=== PATIENT | female | born 1995 | race Caucasian/White ===

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

== ENCOUNTER → 2018-08-26 | Outpatient (CLI) | payer OTHER ==
[~2018-08-26] MED LIST changes: -ACET50TA PO; -COLA100C3 PO; +COLA100C5 PO; +MAPA500T2 PO; -PRENTAB13 PO; +PRENTAB20 PO
[2018-08-26 20:00] LABS: BASO % 0.4 % (0.0-1.0); EOS # 0.4 10^3/uL (0.0-0.50); EOS % 3.2 % (0.0-3.0); HEMATOCRIT 36.5 % (36.0-47.0); MEAN CORPUSCULAR HEMOGLOBIN 29.1 pg (27.0-33.0); MEAN CORPUSCULAR HGB CONC 32.9 g/dl (32.0-36.5); MEAN CORPUSCULAR VOLUME 88.6 fl (80.0-96.0); MONO # 0.5 10^3/uL (0.0-0.8); MONO % 4.9 % (0.0-5.0); NEUTROPHILS # 7.1 10^3/uL (1.8-7.7); PLATELET COUNT, AUTOMATED 282 10^3/uL (150-450); RED BLOOD COUNT 4.12 10^6/uL (4.00-5.40)
[2018-08-26 21:58] LABS: CHLAMYDIA DNA AMPLIFICATION NEGATIVE (NEGATIVE); GC DNA AMPLIFICATION NEGATIVE (NEGATIVE)
[2018-08-28 10:53] LABS: HEPATITIS C VIRUS ABY INDEX 0.1 INDEX (<0.8); HIV 1&2 SCREEN CENTAUR NEGATIVE (NEGATIVE); RUBELLA IgG QUALITATIVE IMMUNE (IMMUNE)
== END ==
LOC: M SMT 13:43
PROVIDERS: ATTEND Obstetrics & Gynecology
DX: Z34.81 Encounter for supervision of other normal pregnancy, first trimester (principal); Z3A.11 11 weeks gestation of pregnancy

== ENCOUNTER → 2018-09-24 | Outpatient (REF) | payer OTHER | LOC: M LAB REF 18:17 | PROVIDERS: ATTEND Obstetrics & Gynecology | DX: Z34.82 Encounter for supervision of other normal pregnancy, second trimester (principal) ==

== ENCOUNTER → 2018-10-07 | Outpatient (CLI) | payer OTHER ==
[2018-10-07 17:04] LABS: HEMOGLOBIN A1c 4.7 %
== END ==
LOC: M LAB 12:17
PROVIDERS: ATTEND Obstetrics & Gynecology
DX: Z36.89 Encounter for other specified antenatal screening (principal)

== ENCOUNTER → 2018-10-12 | Outpatient (CLI) | payer OTHER ==
--- NOTE | 2018-10-13 03:47 | REP ---
Clinical: Anatomical evaluation. Comparison: None . Findings: Examination demonstrates a single live intrauterine in transverse (head to maternal right) presentation. motion is identified by technologist. Placenta is noted anterior and grade grade zero without evidence for placenta previa or abruption. Amniotic fluid volume is normal. Cervix measures 5.6 cm in length and appears closed. No evidence for nuchal cord. Gestational age by LMP 18 weeks 3 days with LEO 03/12/2019 . Gestational age by current measurements 18 weeks 1 day with LEO 13 19 . FHR equals 152 beats per minute. BPD 4.1 cm 18 weeks 3 day HC 15.0 cm 18 weeks 0 days AC 11.8 cm 17 weeks 4 days FL 2.8 cm 18 weeks 4 days HL 2.6 cm 18 weeks 0 days HC/AC ratio 1.27 Estimated weight 221 grams ( 33rd percentile). Anatomical assessment demonstrates normal structures including cranium, choroid plexus, cavum, cerebellum/posterior fossa, facial features, lungs, four-chamber heart/ventricular outflow tracts, diaphragm, stomach, cord insertion/three-vessel cord, kidneys/bladder, spine, and extremities. Impression: Single live intrauterine in transverse lie demonstrating appropriate interval growth. Anatomical assessment is complete and normal. No gross abnormalities are identified. Electronically Signed by James Schmid MD 10/13/2018 03:38 A
== END ==
LOC: M RAD 12:49
PROVIDERS: ATTEND Obstetrics & Gynecology
DX: Z34.81 Encounter for supervision of other normal pregnancy, first trimester (principal); Z3A.18 18 weeks gestation of pregnancy

== ENCOUNTER → 2018-11-25 | Outpatient (REF) | payer OTHER ==
[2018-11-25 20:04] LABS: CHLAMYDIA DNA AMPLIFICATION NEGATIVE (NEGATIVE); GC DNA AMPLIFICATION NEGATIVE (NEGATIVE)
== END ==
LOC: M LAB REF 17:01
PROVIDERS: ATTEND Obstetrics & Gynecology
DX: R10.2 Pelvic and perineal pain (principal)

== ENCOUNTER → 2018-12-14 | Outpatient (CLI) | payer OTHER ==
[2018-12-14 15:22] LABS: HEMATOCRIT 34.8 % (36.0-47.0); HEMOGLOBIN 11.6 g/dl (12.0-15.5); MEAN CORPUSCULAR HEMOGLOBIN 29.4 pg (27.0-33.0); MEAN CORPUSCULAR HGB CONC 33.3 g/dl (32.0-36.5); MEAN CORPUSCULAR VOLUME 88.3 fl (80.0-96.0); PLATELET COUNT, AUTOMATED 212 10^3/uL (150-450); RED BLOOD COUNT 3.94 10^6/uL (4.00-5.40); WHITE BLOOD COUNT 12.1 10^3/uL (4.0-10.0)
== END ==
LOC: M LAB 13:21
PROVIDERS: ATTEND Obstetrics & Gynecology
DX: Z34.82 Encounter for supervision of other normal pregnancy, second trimester (principal); Z3A.00 Weeks of gestation of pregnancy not specified

== ENCOUNTER → 2019-02-24 | Outpatient (REF) | payer OTHER | LOC: M LAB REF 10:51 | PROVIDERS: ATTEND Obstetrics & Gynecology | DX: Z34.83 Encounter for supervision of other normal pregnancy, third trimester (principal) ==

== ENCOUNTER 2019-03-05 14:22 | Inpatient (IN) | payer OTHER, SELFPAY ==
[~2019-03-05] VITALS: Ht 160 cm; Wt 87.0 kg
[2019-03-05] MEDS ORDERED: LACTATED RINGER'S 1000 ML IV STA (14:52)
--- NOTE | 2019-03-05 15:07 | HPEPDOC ---
Obstetrical History & Physical General Date of Admission Mar 05, 2019 at 14:22 History of Present Illness Chief Complaint: Induction of labor Information Provided By: Patient Age: 23 : 3 Term: 2 Pre-term: 0 Abortions: 0 Livin Care Care: Good Care Dating Final EDC: Mar 12, 2019 Final EDC by: LMP, 1st trimester (US) EGA at Admission: 39 Antepartum Course Height (inches): 63 Past Medical History Past Obstetrical History #1: Past Obstetrical History: Primgravida (2015) Type of Delivery: Spontaneous Vaginal Del. Sex of Infant: Female (6 lbs. 12 oz.) Complications: No Past Obstetrical History #2: Past Obstetrical History: Multigravida (2017) Type of Delivery: Spontaneous Vaginal Del. Sex of Infant: Male (5 lbs. 15 oz.) Complications: No SALT LIFTER History: No pertinent history Past Medical History Medical History Noncontributory Surgical History: Denies/None Family History Significant Family History: No pertinent family hx Social History Marital Status: Single Family situation: Spouse/partner home Psychosocial History: No pertinent psych hx * Smoker: non-smoker Alcohol: Denies Drugs: denies Abuse Violence Screening Have you been hit/kicked/slapp: No Have you been sexually assault: No Imunizations Tdap status: current Allergies Coded Allergies: No Known Allergies (Verified , 01/07/04) Medications Scheduled Multivitamins/ ( 28-0.8 mg) 1 Tab Tab, 1 TAB PO DAILY Scheduled PRN Acetaminophen (Mapap) 500 Mg Tab, 1,000 MG PO Q6HP PRN for PAIN SCALE 1-5 Ibuprofen (Ibuprofen) 400 Mg Tab, 800 MG PO Q8HP PRN for PAIN SCALE 6-10 Physical Examination Physical Examination GENERAL: Alert and oriented times three. BREAST: . ABDOMEN: Gravid and non-tender to touch. FETUS: Is vertex (VTX) by sterile vaginal examination (SVE), fetus is vertex (VTX) by Randy. HEART RATE: Regular rate and rhythm. LUNGS: Clear to auscultation (CTA). EXTREMITIES: No edema. No clonus. Deep tendon reflexes (DTRs) + 2. Laboratory Data [facility] Laboratory Tests 2 03/05/19 14:30: Serology Scanned Report Hepatitis B Testing Pertinent Laboratoy Data Blood Type: A+ RBC Antibody Screen: Negative HIV: Negative Hepatitis B: Positive Hepatitis C: Negative Rapid Plasma Reagin: Nonreactive Rubella: Immune Chlamydia/Gonorrhea: Negative Group B Streptococcus: Negative Glucose Tolerance Test: 103 Anatomy Ultrasound Ultrasound Date: October 12, 2018 Placenta Location: Anterior Normal Anatomy: Yes Placenta Previa: No Estimated Weight (grams): 221 Other Ultrasounds 08/26/2018, dating 11 week 1 day Steroid Therapy Steroid Therapy: No Vaginal Examination Dilation: 1cm (to 2) Effacement: 50% Station: -2 Cervical Consistency: Medium Cervical Position: Posterior Presentation: Cephalic presentation Assessment Heart Rate (FHR): 140 Variability: Moderate Accelerations: Positive Decelerations: None Tocometer Contractions: No Assessment/Plan Assessment Maria Antonia is a 23-year-old (G) 3 para (P) 2 -0 -0-2 at, 39 + 0 weeks by 11-week ultrasound. Presents to Labor and Delivery (L&D) for elective induction of labor. Denies regular contractions, loss of fluid or bleeding. Reports good movement.. Plan Admit and orient per consult Dr. Huber Microgrinder Operator and consent. Diet: Regular. Group B Streptococcus (GBS), negative. Labs and intravenous (IV) per unit protocol. Counseled on misoprostol, Pitocin and induction of labor (IOL). Lactated Ringers (LR): Bolus 500 mL, then saline lock. Patient plans to labor ad halina. Anticipate, normal spontaneous vaginal delivery. C-S as appropriate. Porsha Mahan CNM Mar 05, 2019 15:07
[2019-03-05 15:39] LABS: HEMATOCRIT 33.4 % (36.0-47.0); HEMOGLOBIN 11.5 g/dl (12.0-15.5); MEAN CORPUSCULAR HEMOGLOBIN 30.3 pg (27.0-33.0); MEAN CORPUSCULAR HGB CONC 34.4 g/dl (32.0-36.5); MEAN CORPUSCULAR VOLUME 88.1 fl (80.0-96.0); PLATELET COUNT, AUTOMATED 194 10^3/uL (150-450); RED BLOOD COUNT 3.79 10^6/uL (4.00-5.40); WHITE BLOOD COUNT 9.9 10^3/uL (4.0-10.0)
[2019-03-05] MEDS: miSOPROStol 50 MCG 1/2 TAB (S0191) PO SCH ×2 (15:39→19:54)
[2019-03-05 19:26] VITALS: BP 114/63
[2019-03-05 22:07] VITALS: BP 115/64
[2019-03-05 22:44] VITALS: BP 122/66
[2019-03-05 23:50] VITALS: BP 115/67
[2019-03-06] VITALS (17 sets, daily range): BP systolic 97–119; BP diastolic 56–77
[2019-03-06] MEDS: miSOPROStol 50 MCG 1/2 TAB (S0191) PO SCH ×2 (00:29→04:50)
[2019-03-06] MEDS ORDERED: OXYTOCIN DRIP 30 UNITS in IV 1 EA IV SCH ×2 (08:45→17:00)
[2019-03-06] MEDS: LR 1,000 ML IV SCH ×2 (09:19→15:16)
[2019-03-06] MEDS ORDERED: PROMETHAZINE INJ 25 MG/ML VIAL (J2550) IV PRN (15:30)
[2019-03-06] MEDS ORDERED: BUTORPHANOL 2 MG/ML INJ (J0595) IV ONE (15:30)
[2019-03-06] MEDS ORDERED: IBUPROFEN 800 MG TAB PO PRN (17:00)
[2019-03-06] MEDS ORDERED: ANUSOL HC CREAM 30GM TOP PRN (17:00)
[2019-03-06] MEDS ORDERED: ACETAMINOPHEN 500 MG TAB PO PRN (17:00)
[2019-03-06] MEDS ORDERED: ACETAMINOPHEN TAB 650MG DOSE (2X325MG) PO PRN (17:00)
[2019-03-06] MEDS ORDERED: MEASLES,MUMPS,RUBELLA VACCINE INJ (MMR-II) (90707) SC SCH (17:00)
[2019-03-06] MEDS ORDERED: MOM 30ML SUSPENSION UDC PO PRN (17:00)
[2019-03-06] MEDS ORDERED: RHOGAM 300 MCG (1500 IU) INJ (J2790) IM SCH (17:00)
[2019-03-06] MEDS ORDERED: DOCUSATE SODIUM 100 MG CAP PO PRN (17:00)
[2019-03-06] MEDS ORDERED: DIBUCAINE 1% OINTMENT 30GM TOP PRN (17:00)
[2019-03-06] MEDS ORDERED: METHYLERGONOVINE MALEATE 0.2 MG TAB PO PRN (17:00)
[2019-03-06] MEDS ORDERED: IBUPROFEN 600 MG TAB PO PRN (17:00)
[2019-03-07 05:29] VITALS: BP 104/59
--- NOTE | 2019-03-07 08:06 | DN ---
DATE OF DELIVERY: 03/06/2019 TIME OF : 1633 GENDER: Male : 8 and 9. WEIGHT: 2540 grams or 5 pounds 10 ounces. LACERATIONS: None. ANESTHESIA: None. DELIVERY NOTE: On March 06, 2019 at 1633, Ms. Medellin, a 23-year-old 3 now para 3 had a spontaneous vaginal delivery of a live born male infant, 8 and 9, weight was 2540 grams or 5 pounds 10 ounces. Head was delivered OA over intact perineum followed by delivery of shoulders and corpus. Infant was then handed to mom with a good cry. Cord was clamped times two. It was cut by the father of the baby under my direction. Placenta was then drained and delivered grossly intact. A premixed bag of 500 mL of normal saline with 30 units of Pitocin was then bolused along with uterine massage. The uterus was firm. On inspection, cervix, vagina and perineum was grossly intact and hemostatic. Mom and baby recovered in stable condition. The couple has decided to name their son Edwin Turner.
[2019-03-07] MEDS ORDERED: PRENATAL VITAMINS CHEWABLE TABLET PO SCH (09:00)
== END 2019-03-07 17:35 | disposition home or self-care (01) | DRG 560 ==
LOC: M LDI 14:22 → M OBS 03-06 18:57
PROVIDERS: ADMIT Advanced Practice Midwife; ATTEND Obstetrics & Gynecology
PROC: 10E0XZZ Delivery of Products of Conception, External Approach (ICD-10-PCS; principal; 2019-03-06)
PROC: 3E0P7GC Introduction of Other Therapeutic Substance into Female Reproductive, Via Natural or Artificial Opening (ICD-10-PCS; 2019-03-06)
DX: O69.3XX0 Labor and delivery complicated by short cord, not applicable or unspecified (principal); Z3A.39 39 weeks gestation of pregnancy; Z37.0 Single live birth

== ENCOUNTER → 2019-07-30 | Outpatient (REF) | payer OTHER | LOC: M SFHCLERA 13:18 | PROVIDERS: ATTEND Nurse Practitioner Family | DX: R68.89 Other general symptoms and signs (principal) ==

== ENCOUNTER → 2019-08-04 | Outpatient (REF) | payer OTHER | LOC: M PLALAB 10:32 | PROVIDERS: ATTEND Obstetrics & Gynecology | DX: Z12.4 Encounter for screening for malignant neoplasm of cervix (principal) ==

== ENCOUNTER 2020-10-30 20:54 | Emergency (ER) | payer OTHER ==
[~2020-10-30] VITALS: Ht 160 cm; Wt 90.9 kg
[2020-10-30] MEDS ORDERED: NS 1,000 ML IV ONE (21:05)
[2020-10-30] MEDS ORDERED: ALBU8.5H INH (21:08)
[2020-10-30 21:35] LABS: BASO # 0.1 10^3/uL (0.0-0.2); BASO % 0.6 % (0.0-1.0); EOS # 0.4 10^3/uL (0.0-0.5); HEMOGLOBIN 14.2 g/dl (12.0-15.5); LYMPH # 3.3 10^3/uL (1.5-5.0); LYMPH % 26.6 % (24.0-44.0); MEAN CORPUSCULAR HEMOGLOBIN 29.8 pg (27.0-33.0); MEAN CORPUSCULAR HGB CONC 34.6 g/dl (32.0-36.5); MEAN CORPUSCULAR VOLUME 86.1 fl (80.0-96.0); MONO # 0.7 10^3/uL (0.0-0.8); MONO % 5.7 % (2.0-8.0); NEUTROPHILS % 63.9 % (36.0-66.0); PLATELET COUNT, AUTOMATED 327 10^3/uL (150-450); RED BLOOD COUNT 4.76 10^6/uL (4.00-5.40); WHITE BLOOD COUNT 12.4 10^3/uL (4.0-10.0)
[2020-10-30 22:01] LABS: HCG, SERUM QUALITATIVE NEGATIVE (NEGATIVE)
[2020-10-30 22:06] LABS: ACETAMINOPHEN LEVEL < 2.0 UG/ML (10.0-30.0); ALT/SGPT 27 U/L (12-78); BILIRUBIN,DIRECT 0.1 MG/DL (0.0-0.2); BILIRUBIN,TOTAL 0.4 MG/DL (0.2-1.0); BLOOD UREA NITROGEN 7 MG/DL (7-18); CALCIUM LEVEL 9.2 MG/DL (8.5-10.1); CARBON DIOXIDE LEVEL 24 MEQ/L (21-32); CHLORIDE LEVEL 108 MEQ/L (98-107); CPK CREATINE PHOSPHOKINASE 187 U/L (26-192); CREATININE FOR GFR 0.62 MG/DL (0.55-1.30); ETHYL ALCOHOL (ETHANOL) 0.094 % (0.000-0.010); GLOMERULAR FILTRATION RATE > 60.0 (>60); GLUCOSE, FASTING 79 MG/DL (70-100); POTASSIUM SERUM 3.4 MEQ/L (3.5-5.1); SALICYLATE LEVEL < 1.7 MG/DL (5.0-30.0); SODIUM LEVEL 142 MEQ/L (136-145); THYROID STIMULATING HORMONE 0.744 uIU/ML (0.358-3.740); TOTAL PROTEIN 7.7 GM/DL (6.4-8.2)
[2020-10-30 22:15] VITALS: BP 146/76
[2020-10-30 23:09] LABS: AMPHETAMINES LEVEL URINE NEGATIVE (NEGATIVE); BARBITURATES URINE NEGATIVE (NEGATIVE); BENZODIAZEPINES URINE NEGATIVE (NEGATIVE); CANNABINOIDS URINE POSITIVE (NEGATIVE); COCAINE METABOLITE URINE NEGATIVE (NEGATIVE); METHADONE URINE NEGATIVE (NEGATIVE); OPIATES URINE NEGATIVE (NEGATIVE); PHENCYCLIDINE URINE NEGATIVE (NEGATIVE)
--- NOTE | 2020-11-01 20:30 | ECGEPIP ---
[facility] - ED Test Date: 2020-10-30 Pat Name: CLARIBEL TERRY Department: Room: - Gender: Female [employer]: : 1995 Requested By: JOSÉ MIGUEL Tamayo Order Number: [id number] Reading MD: Betty Garduno Measurements Intervals [place] Rate: 89 P: 48 MA: 138 QRS: 5 QRSD: 82 T: 16 QT: 370 QTc: 450 Interpretive Statements Normal sinus rhythm NSTTW abnormalities decreased rate 06/17/16 Electronically Signed on 11-01-2020 20:30:28 EDT by Betty Garduno
== END 2020-10-30 23:15 | disposition left against medical advice (07) ==
LOC: M ED 20:54
DX: R41.0 Disorientation, unspecified (principal); F10.129 Alcohol abuse with intoxication, unspecified; Z53.9 Procedure and treatment not carried out, unspecified reason; J45.909 Unspecified asthma, uncomplicated

== ENCOUNTER → 2023-04-23 | Outpatient (REF) ==
[~2023-04-23] MED LIST changes: +ALBU8.5H INH
[2023-04-23 14:12] LABS: RSV AMPLIFICATION NEGATIVE (NEGATIVE)
== END ==
LOC: M EMP 12:59
PROVIDERS: ATTEND Family Medicine
DX: Z11.52 Encounter for screening for COVID-19 (principal)

== ENCOUNTER 2023-05-17 21:49 | Emergency (ER) | payer OTHER ==
[~2023-05-17] VITALS: Ht 160 cm; Wt 93.3 kg
[2023-05-17] MEDS ORDERED: IPRATROPIUM 0.5MG/ALBUTEROL 2.5MG INH SOL UD 3ML (DUONEB) NEB ONE (22:55)
[2023-05-18] MEDS ORDERED: methylPREDNISolone 125MG 2ML VIAL IV ONE (00:05)
[2023-05-18] MEDS: IPRATROPIUM 0.5MG/ALBUTEROL 2.5MG INH SOL UD 3ML (DUONEB) NEB PRN ×2 (00:23→02:30)
[2023-05-18 00:29] LABS: BASO # 0.1 10^3/uL (0.0-0.2); BASO % 0.3 % (0.0-1.0); EOS # 0.9 10^3/uL (0.0-0.5); EOS % 5.6 % (0.0-3.0); HEMATOCRIT 37.7 % (36.0-47.0); HEMOGLOBIN 13.1 g/dl (12.0-15.5); LYMPH # 4.3 10^3/uL (1.5-5.0); MEAN CORPUSCULAR HEMOGLOBIN 29.6 pg (27.0-33.0); MEAN CORPUSCULAR HGB CONC 34.7 g/dl (32.0-36.5); MEAN CORPUSCULAR VOLUME 85.1 fl (80.0-96.0); NEUTROPHILS # 10.2 10^3/uL (1.5-8.5); NEUTROPHILS % 61.7 % (36.0-66.0); PLATELET COUNT, AUTOMATED 263 10^3/uL (150-450); RED BLOOD COUNT 4.43 10^6/uL (4.00-5.40); WHITE BLOOD COUNT 16.5 10^3/uL (4.0-10.0)
[2023-05-18 00:41] LABS: ALBUMIN 3.8 G/DL (3.2-5.2); ALKALINE PHOSPHATASE 73 U/L (46-116); ALT/SGPT 21 U/L (7.0-40); AST/SGOT 16 U/L (<34); BILIRUBIN,DIRECT 0.1 MG/DL (<0.4); BILIRUBIN,TOTAL 0.3 MG/DL (0.3-1.2); BLOOD UREA NITROGEN 13 MG/DL (9-23); CALCIUM LEVEL 9.4 MG/DL (8.5-10.1); CARBON DIOXIDE LEVEL 23 MMOL/L (20-31); CHLORIDE LEVEL 109 MMOL/L (98-107); GLOMERULAR FILTRATION RATE > 60.0 (>60); GLUCOSE, FASTING 84 MG/DL (60-100); POTASSIUM SERUM 3.8 MMOL/L (3.5-5.1); SODIUM LEVEL 141 MMOL/L (136-145); TOTAL PROTEIN 6.8 G/DL (5.7-8.2)
[2023-05-18] MEDS ORDERED: PRED20TA PO (01:47)
[2023-05-18 02:50] VITALS: BP 118/70; TEMP 98.2; O2SAT 98
== END 2023-05-18 02:52 | disposition home or self-care (01) ==
LOC: M ED 21:49
DX: J45.901 Unspecified asthma with (acute) exacerbation (principal); Z79.52 Long term (current) use of systemic steroids; Z79.1 Long term (current) use of non-steroidal anti-inflammatories (NSAID)
CPT/HCPCS: 71045; 80048; 80076; 84702; 85025; 87486; 87581; 87633; 87798; 93005; 93041; 94640; 94760; 96374; 99284; J2930

== ENCOUNTER → 2023-06-06 | Outpatient (CLI) | payer OTHER ==
[~2023-06-06] MED LIST changes: +PRED20TA PO
[2023-06-06 16:57] LABS: BASO # 0.1 10^3/uL (0.0-0.2); BASO % 0.5 % (0.0-1.0); EOS # 0.6 10^3/uL (0.0-0.5); EOS % 5.7 % (0.0-3.0); HEMATOCRIT 37.2 % (36.0-47.0); HEMOGLOBIN 12.5 g/dl (12.0-15.5); LYMPH # 3.8 10^3/uL (1.5-5.0); LYMPH % 35.2 % (24.0-44.0); MEAN CORPUSCULAR HEMOGLOBIN 29.4 pg (27.0-33.0); MEAN CORPUSCULAR HGB CONC 33.6 g/dl (32.0-36.5); MEAN CORPUSCULAR VOLUME 87.5 fl (80.0-96.0); MONO # 0.8 10^3/uL (0.0-0.8); MONO % 7.3 % (2.0-8.0); NEUTROPHILS # 5.6 10^3/uL (1.5-8.5); NEUTROPHILS % 51.1 % (36.0-66.0); PLATELET COUNT, AUTOMATED 273 10^3/uL (150-450); RED BLOOD COUNT 4.25 10^6/uL (4.00-5.40); WHITE BLOOD COUNT 10.9 10^3/uL (4.0-10.0)
[2023-06-06 17:21] LABS: ALBUMIN 3.7 G/DL (3.2-5.2); ALKALINE PHOSPHATASE 63 U/L (46-116); ALT/SGPT 15 U/L (7.0-40); AST/SGOT 9 U/L (<34); BILIRUBIN,TOTAL 0.3 MG/DL (0.3-1.2); BLOOD UREA NITROGEN 18 MG/DL (9-23); CALCIUM LEVEL 9.4 MG/DL (8.5-10.1); CARBON DIOXIDE LEVEL 27 MMOL/L (20-31); CHLORIDE LEVEL 107 MMOL/L (98-107); CHOLESTEROL LEVEL 128 MG/DL (<200); CHOLESTEROL RISK RATIO 3.16 (<5); CREATININE FOR GFR 0.67 MG/DL (0.55-1.30); GLOMERULAR FILTRATION RATE > 60.0 (>60); GLUCOSE, FASTING 86 MG/DL (60-100); HDL CHOLESTEROL 40.4 MG/DL (>40); LDL CHOLESTEROL 61.4 MG/DL (<100); NON-HDL-C 87.6 MG/DL; POTASSIUM SERUM 3.9 MMOL/L (3.5-5.1); SODIUM LEVEL 138 MMOL/L (136-145); TOTAL PROTEIN 6.6 G/DL (5.7-8.2); TRIGLYCERIDES LEVEL 131 MG/DL (<150)
[2023-06-06 17:22] LABS: THYROID STIMULATING HORMONE 1.526 uIU/ML (0.55-4.78); TOTAL 25(OH) VITAMIN D 27.4 NG/ML (20.0-100.0)
== END ==
LOC: M WUC 14:49
PROVIDERS: ATTEND Physician Assistant
DX: Z13.6 Encounter for screening for cardiovascular disorders (principal)